=== PATIENT | female | born 1980 | race African-American/Black ===

== ENCOUNTER 2022-02-13 15:05 | Emergency (ER) | payer OTHER ==
[2022-02-13] MEDS ORDERED: MORPHINE 4 MG/ML SYR ONE (15:33)
[2022-02-13] MEDS ORDERED: ONDANSETRON 4 MG/2 ML VIAL ONE (15:33)
[2022-02-13] MEDS ORDERED: NA CHLORIDE 0.9% 1,000 ML ONE (15:33)
[2022-02-13 15:58] LABS: Absolute Lymphocytes (CBC) 1.8 K/uL (0.7-4.9); Hematocrit 39.9 % (36.0-45.0); MCV 82.9 fL (80-100); MPV 7.9 fL (7.6-11.3); RBC Red Blood Cell Count 4.81 M/uL (3.86-4.86)
[2022-02-13 16:20] LABS: Potassium 3.9 mmol/L (3.5-5.1)
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
[2022-02-13 18:52] VITALS: TEMP 98.9
[2022-02-13 18:55] VITALS: BP 123/72; O2SAT 100
== END 2022-02-13 18:28 | disposition home or self-care (01) ==
LOC: ER 15:05
DX: S16.1XXA Strain of muscle, fascia and tendon at neck level, initial encounter (principal); S30.1XXA Contusion of abdominal wall, initial encounter; V49.88XA Car occupant (driver) (passenger) injured in other specified transport accidents, initial encounter
CPT/HCPCS: 36415; 70450; 71260; 72125; 74177; 80048; 85025; 86850; 86900; 86901; 96361; 96374; 96375; 99284; J2405; J7030; Q9967